=== PATIENT | female | born 1950 | race American Indian/Alaskan Native ===

== ENCOUNTER 2018-03-04 17:02 | Emergency (ER) | payer MEDICARE, MEDICAID ==
[~2018-03-04] VITALS: Ht 152.4 cm; Wt 84.3 kg
[2018-03-04 17:25] VITALS: BP 192/89
== END 2018-03-04 21:09 | disposition left against medical advice (07) ==
LOC: ER 17:03
DX: M25.571 Pain in right ankle and joints of right foot (principal); Z53.21 Procedure and treatment not carried out due to patient leaving prior to being seen by health care provider
CPT/HCPCS: 73610

== ENCOUNTER 2018-03-30 14:48 | Emergency (ER) | payer MEDICARE, MEDICAID ==
[~2018-03-30] VITALS: Ht 152.4 cm; Wt 81.8 kg
[2018-03-30] MEDS ORDERED: SULF1TAB49 PO (16:26)
[2018-03-30] MEDS ORDERED: CEPH-572 PO (16:26)
[2018-03-30 16:46] VITALS: BP 183/67
== END 2018-03-30 16:48 | disposition home or self-care (01) ==
LOC: ER 14:49
DX: L02.612 Cutaneous abscess of left foot (principal); E11.40 Type 2 diabetes mellitus with diabetic neuropathy, unspecified; Z98.890 Other specified postprocedural states; Z89.421 Acquired absence of other right toe(s); Z88.0 Allergy status to penicillin
CPT/HCPCS: 73620; 99283

== ENCOUNTER 2018-04-12 09:06 | Day surgery (SDC) | payer MEDICARE, MEDICAID ==
[2018-04-12] MEDS ORDERED: FURO-150 PO (11:41)
[2018-04-12] MEDS ORDERED: HYDR-3965 PO (11:41)
[2018-04-12] MEDS ORDERED: CYCL-394 (11:41)
[2018-04-12] MEDS ORDERED: ASPI81TA52 PO (11:41)
--- NOTE | 2018-04-12 11:42 | NUR ---
Patient ambulated independently from [facility] and was admitted to outpatient wound care for physician visit. Dressings removed, wound cleansed. New Patient assessment completed with review of patient's medical history and current medications. Blood Glucose= 133 @ 0935 1000-Dr. Malcolm at bedside accompanied by RN. Wound assessed, time-out performed by MD/RN. Wound debrided as detailed in the physician progress/procedure note. Plan of care discussed with patient. Dressings placed per MD orders. Patient instructed on the signs and symptoms of infection and to call the Wound Center if any occur or to go to the ED if we are closed: Increased pain in the wound Increase in drainage from the wound Redness in the skin surrounding the wound Bleeding from the wound Temperature of 101F or greater Patient instructed that the weight of their body puts a large amount of pressure on their wounds. This pressure keeps the new tissue from growing and inhibits new blood vessels from forming. Explained that, if they continue to bear weight on a body part that has a wound, the time it takes to heal the wound increases, the wound may get worse, or the wound may not heal at all. Patient instructed that elevated blood sugars delay healing of the wound and can cause further complications including but not limited to amputation of toes or feet. Patient verbalized understanding of all discharge instructions and plan of care. Patient ambulated independently out to [facility] in stable condition with no signs or symptoms of distress at time of discharge.
== END 2018-04-12 10:25 | disposition home or self-care (01) ==
LOC: WOUND CARE 09:06
PROVIDERS: ATTEND Surgery
DX: E11.621 Type 2 diabetes mellitus with foot ulcer (principal); L97.521 Non-pressure chronic ulcer of other part of left foot limited to breakdown of skin; E11.40 Type 2 diabetes mellitus with diabetic neuropathy, unspecified; Z98.890 Other specified postprocedural states; Z89.421 Acquired absence of other right toe(s)
CPT/HCPCS: 36416; 82948; 97597; A6021; A6206

== ENCOUNTER 2018-05-05 09:05 | Day surgery (SDC) | payer MEDICARE, MEDICAID ==
[~2018-05-05 09:05] MED LIST: ASPI81TA52 PO; CYCL-394; FURO-150 PO; HYDR-3965 PO
--- NOTE | 2018-05-05 15:13 | NUR ---
Patient ambulated independently from [facility] and was admitted to outpatient wound care for physician visit with Mario Malcolm MD. Dressing removed, wound cleansed and Emla cream applied per order. Patient assessed for changes in conditions, medications and medical history. Dr. Malcolm at bedside accompanied by RN. Wound assessed, time out performed by MD/RN. Wound debrided as detailed in the physician progress/procedure note. Plan of care discussed with patient. Dressings placed per MD orders. Patient instructed on the signs and symptoms of infection and to call the Wound Center if any occur or to go to the ED if we are closed: Increased pain in wound Increase in drainage from the wound Redness in the skin surrounding the wound Bleeding from the wound Temperature of 101 or greater Patient instructed that elevated blood sugars delay healing of the wound and can cause further complications including but not limited to amputation of toes or feet. Patient instructed that the weight of their body puts a large amount of pressure on their wounds. This pressure keeps the new tissue from growing and inhibits new blood vessels from forming. Explained that, if they continue to bear weight on a body part that has a wound, the time it takes to heal the wound increases, the wound may get worse or the wound may not heal at all. Patient verbalized understanding of all discharge instructions and plan of care and ambulated independently out to [facility] in stable condition with no sign or symptom of distress at time of discharge. Addendum: 05/05/18 at 1515 by Teresa Henriquez RN Amended: Links added.
== END 2018-05-05 10:47 | disposition home or self-care (01) ==
LOC: WOUND CARE 09:05
PROVIDERS: ATTEND Surgery
DX: E11.621 Type 2 diabetes mellitus with foot ulcer (principal); L97.521 Non-pressure chronic ulcer of other part of left foot limited to breakdown of skin; E11.40 Type 2 diabetes mellitus with diabetic neuropathy, unspecified; E11.65 Type 2 diabetes mellitus with hyperglycemia; Z98.890 Other specified postprocedural states; Z89.421 Acquired absence of other right toe(s)
CPT/HCPCS: 82948; 97597

== ENCOUNTER 2019-02-09 09:21 | Day surgery (SDC) | payer MEDICARE, MEDICAID ==
[~2019-02-09 09:21] MED LIST changes: +ALBU8.5H8 INH; +BLOO-579 PERCUTAN; +CHOL50004 PO; +CLON0.1T PO; +CYCL10TA10 PO; +FAMO20TA8 PO; +HYDR-3972 PO; +INSU100C4 SQ; +LANTUS SQ; +LEVO500T89 PO
[2019-02-09] MEDS ORDERED: LIDOcaine 2% 5ml jelly ONE (09:51)
== END 2019-02-09 11:05 | disposition home or self-care (01) ==
LOC: WOUND CARE 09:21
PROVIDERS: ATTEND Surgery
DX: E11.621 Type 2 diabetes mellitus with foot ulcer (principal); L97.512 Non-pressure chronic ulcer of other part of right foot with fat layer exposed; L97.521 Non-pressure chronic ulcer of other part of left foot limited to breakdown of skin; S91.101A Unspecified open wound of right great toe without damage to nail, initial encounter; E11.65 Type 2 diabetes mellitus with hyperglycemia; E11.36 Type 2 diabetes mellitus with diabetic cataract; E11.39 Type 2 diabetes mellitus with other diabetic ophthalmic complication; H42 Glaucoma in diseases classified elsewhere; E11.42 Type 2 diabetes mellitus with diabetic polyneuropathy; E11.22 Type 2 diabetes mellitus with diabetic chronic kidney disease; I12.9 Hypertensive chronic kidney disease with stage 1 through stage 4 chronic kidney disease, or unspecified chronic kidney disease; N18.9 Chronic kidney disease, unspecified; I25.2 Old myocardial infarction; I25.10 Atherosclerotic heart disease of native coronary artery without angina pectoris; M19.90 Unspecified osteoarthritis, unspecified site; J44.9 Chronic obstructive pulmonary disease, unspecified; Z90.722 Acquired absence of ovaries, bilateral; Z98.890 Other specified postprocedural states; Z79.2 Long term (current) use of antibiotics; Z79.82 Long term (current) use of aspirin; Z79.4 Long term (current) use of insulin; Z79.899 Other long term (current) drug therapy; Z95.1 Presence of aortocoronary bypass graft; Z89.421 Acquired absence of other right toe(s); Z87.891 Personal history of nicotine dependence; X58.XXXA Exposure to other specified factors, initial encounter; Y93.89 Activity, other specified; Y92.89 Other specified places as the place of occurrence of the external cause; Y99.8 Other external cause status
CPT/HCPCS: 36416; 82948; 87070; 87075; 87102; 97597; A4663; A6021; A6154

== ENCOUNTER 2019-02-16 09:30 | Day surgery (SDC) | payer MEDICARE, MEDICAID ==
[2019-02-16] MEDS ORDERED: LIDOcaine 2% 5ml jelly ONE (09:48)
== END 2019-02-16 11:55 | disposition home or self-care (01) ==
LOC: WOUND CARE 09:30
PROVIDERS: ATTEND Surgery
DX: E11.621 Type 2 diabetes mellitus with foot ulcer (principal); L97.512 Non-pressure chronic ulcer of other part of right foot with fat layer exposed; L97.521 Non-pressure chronic ulcer of other part of left foot limited to breakdown of skin; S91.101D Unspecified open wound of right great toe without damage to nail, subsequent encounter; E11.65 Type 2 diabetes mellitus with hyperglycemia; E11.36 Type 2 diabetes mellitus with diabetic cataract; E11.39 Type 2 diabetes mellitus with other diabetic ophthalmic complication; H42 Glaucoma in diseases classified elsewhere; E11.42 Type 2 diabetes mellitus with diabetic polyneuropathy; E11.22 Type 2 diabetes mellitus with diabetic chronic kidney disease; I12.9 Hypertensive chronic kidney disease with stage 1 through stage 4 chronic kidney disease, or unspecified chronic kidney disease; N18.9 Chronic kidney disease, unspecified; I25.2 Old myocardial infarction; I25.10 Atherosclerotic heart disease of native coronary artery without angina pectoris; M19.90 Unspecified osteoarthritis, unspecified site; J44.9 Chronic obstructive pulmonary disease, unspecified; Z90.722 Acquired absence of ovaries, bilateral; Z98.890 Other specified postprocedural states; Z79.2 Long term (current) use of antibiotics; Z79.82 Long term (current) use of aspirin; Z79.4 Long term (current) use of insulin; Z79.899 Other long term (current) drug therapy; Z95.1 Presence of aortocoronary bypass graft; Z89.421 Acquired absence of other right toe(s); Z87.891 Personal history of nicotine dependence; X58.XXXD Exposure to other specified factors, subsequent encounter
CPT/HCPCS: 36416; 82948; 93922; 93925; 97597; A6446; A4663; A6021; A6154

== ENCOUNTER 2019-02-23 09:10 | Day surgery (SDC) | payer MEDICARE, MEDICAID ==
[2019-02-23] MEDS ORDERED: LIDOcaine 2% 5ml jelly ONE (10:01)
== END 2019-02-23 11:08 | disposition home or self-care (01) ==
LOC: WOUND CARE 09:10
PROVIDERS: ATTEND Surgery
DX: E11.621 Type 2 diabetes mellitus with foot ulcer (principal); L97.521 Non-pressure chronic ulcer of other part of left foot limited to breakdown of skin; L97.512 Non-pressure chronic ulcer of other part of right foot with fat layer exposed; S91.101D Unspecified open wound of right great toe without damage to nail, subsequent encounter; E11.65 Type 2 diabetes mellitus with hyperglycemia; E11.36 Type 2 diabetes mellitus with diabetic cataract; E11.39 Type 2 diabetes mellitus with other diabetic ophthalmic complication; H42 Glaucoma in diseases classified elsewhere; E11.22 Type 2 diabetes mellitus with diabetic chronic kidney disease; I12.9 Hypertensive chronic kidney disease with stage 1 through stage 4 chronic kidney disease, or unspecified chronic kidney disease; N18.9 Chronic kidney disease, unspecified; I25.2 Old myocardial infarction; I25.10 Atherosclerotic heart disease of native coronary artery without angina pectoris; M19.90 Unspecified osteoarthritis, unspecified site; J44.9 Chronic obstructive pulmonary disease, unspecified; Z90.722 Acquired absence of ovaries, bilateral; Z98.890 Other specified postprocedural states; Z79.2 Long term (current) use of antibiotics; Z79.82 Long term (current) use of aspirin; Z79.4 Long term (current) use of insulin; Z79.899 Other long term (current) drug therapy; Z95.1 Presence of aortocoronary bypass graft; Z89.421 Acquired absence of other right toe(s); Z87.891 Personal history of nicotine dependence; X58.XXXD Exposure to other specified factors, subsequent encounter
CPT/HCPCS: 36416; 82948; 97597; A4663; A6021; A6154

== ENCOUNTER 2019-03-01 09:44 | Day surgery (SDC) | payer MEDICARE, MEDICAID ==
[2019-03-01] MEDS ORDERED: LIDOcaine 2% 5ml jelly ONE (10:08)
== END 2019-03-01 10:51 | disposition home or self-care (01) ==
LOC: WOUND CARE 09:44
PROVIDERS: ATTEND Nurse Practitioner Family
DX: E11.621 Type 2 diabetes mellitus with foot ulcer (principal); L97.512 Non-pressure chronic ulcer of other part of right foot with fat layer exposed; S91.101D Unspecified open wound of right great toe without damage to nail, subsequent encounter; E11.65 Type 2 diabetes mellitus with hyperglycemia; E11.36 Type 2 diabetes mellitus with diabetic cataract; E11.39 Type 2 diabetes mellitus with other diabetic ophthalmic complication; H42 Glaucoma in diseases classified elsewhere; E11.22 Type 2 diabetes mellitus with diabetic chronic kidney disease; I12.9 Hypertensive chronic kidney disease with stage 1 through stage 4 chronic kidney disease, or unspecified chronic kidney disease; N18.9 Chronic kidney disease, unspecified; I25.2 Old myocardial infarction; I25.10 Atherosclerotic heart disease of native coronary artery without angina pectoris; M19.90 Unspecified osteoarthritis, unspecified site; J44.9 Chronic obstructive pulmonary disease, unspecified; Z90.722 Acquired absence of ovaries, bilateral; Z98.890 Other specified postprocedural states; Z79.2 Long term (current) use of antibiotics; Z79.82 Long term (current) use of aspirin; Z79.4 Long term (current) use of insulin; Z79.899 Other long term (current) drug therapy; Z95.1 Presence of aortocoronary bypass graft; Z89.421 Acquired absence of other right toe(s); Z87.891 Personal history of nicotine dependence; X58.XXXD Exposure to other specified factors, subsequent encounter
CPT/HCPCS: 36416; 82948; 97597; A4663; A6021

== ENCOUNTER 2019-03-08 09:16 | Day surgery (SDC) | payer MEDICARE, MEDICAID ==
[2019-03-08] MEDS ORDERED: LIDOcaine 2% 5ml jelly ONE (09:40)
== END 2019-03-08 10:47 | disposition home or self-care (01) ==
LOC: WOUND CARE 09:16
PROVIDERS: ATTEND Nurse Practitioner Family
DX: E11.621 Type 2 diabetes mellitus with foot ulcer (principal); L97.512 Non-pressure chronic ulcer of other part of right foot with fat layer exposed; S91.101D Unspecified open wound of right great toe without damage to nail, subsequent encounter; E11.65 Type 2 diabetes mellitus with hyperglycemia; E11.36 Type 2 diabetes mellitus with diabetic cataract; E11.39 Type 2 diabetes mellitus with other diabetic ophthalmic complication; H42 Glaucoma in diseases classified elsewhere; E11.22 Type 2 diabetes mellitus with diabetic chronic kidney disease; I12.9 Hypertensive chronic kidney disease with stage 1 through stage 4 chronic kidney disease, or unspecified chronic kidney disease; N18.9 Chronic kidney disease, unspecified; E11.42 Type 2 diabetes mellitus with diabetic polyneuropathy; I25.2 Old myocardial infarction; I25.10 Atherosclerotic heart disease of native coronary artery without angina pectoris; M19.90 Unspecified osteoarthritis, unspecified site; J44.9 Chronic obstructive pulmonary disease, unspecified; Z90.722 Acquired absence of ovaries, bilateral; Z98.890 Other specified postprocedural states; Z79.2 Long term (current) use of antibiotics; Z79.82 Long term (current) use of aspirin; Z79.4 Long term (current) use of insulin; Z79.899 Other long term (current) drug therapy; Z95.1 Presence of aortocoronary bypass graft; Z89.421 Acquired absence of other right toe(s); Z87.891 Personal history of nicotine dependence; X58.XXXD Exposure to other specified factors, subsequent encounter
CPT/HCPCS: 36416; 82948; 97597; A4663; A6021; A6154

== ENCOUNTER 2019-03-23 09:30 | Day surgery (SDC) | payer MEDICARE, MEDICAID ==
[2019-03-23] MEDS ORDERED: LIDOcaine 2% 5ml jelly ONE (09:50)
== END 2019-03-23 10:45 | disposition home or self-care (01) ==
LOC: WOUND CARE 09:30
PROVIDERS: ATTEND Surgery
DX: E11.621 Type 2 diabetes mellitus with foot ulcer (principal); L97.512 Non-pressure chronic ulcer of other part of right foot with fat layer exposed; S91.101D Unspecified open wound of right great toe without damage to nail, subsequent encounter; E11.65 Type 2 diabetes mellitus with hyperglycemia; E11.36 Type 2 diabetes mellitus with diabetic cataract; E11.39 Type 2 diabetes mellitus with other diabetic ophthalmic complication; H42 Glaucoma in diseases classified elsewhere; E11.22 Type 2 diabetes mellitus with diabetic chronic kidney disease; I12.9 Hypertensive chronic kidney disease with stage 1 through stage 4 chronic kidney disease, or unspecified chronic kidney disease; N18.9 Chronic kidney disease, unspecified; E11.42 Type 2 diabetes mellitus with diabetic polyneuropathy; I25.2 Old myocardial infarction; I25.10 Atherosclerotic heart disease of native coronary artery without angina pectoris; M19.90 Unspecified osteoarthritis, unspecified site; J44.9 Chronic obstructive pulmonary disease, unspecified; Z90.722 Acquired absence of ovaries, bilateral; Z98.890 Other specified postprocedural states; Z79.2 Long term (current) use of antibiotics; Z79.82 Long term (current) use of aspirin; Z79.4 Long term (current) use of insulin; Z79.899 Other long term (current) drug therapy; Z95.1 Presence of aortocoronary bypass graft; Z89.421 Acquired absence of other right toe(s); Z87.891 Personal history of nicotine dependence; X58.XXXD Exposure to other specified factors, subsequent encounter
CPT/HCPCS: 36416; 82948; 97597; A4663; A6021; A6154

== ENCOUNTER 2019-03-30 09:15 | Day surgery (SDC) | payer MEDICARE, MEDICAID ==
[2019-03-30] MEDS ORDERED: LIDOcaine 2% 5ml jelly ONE (09:30)
== END 2019-03-30 10:03 | disposition home or self-care (01) ==
LOC: WOUND CARE 09:15
PROVIDERS: ATTEND Surgery
DX: E11.621 Type 2 diabetes mellitus with foot ulcer (principal); L97.512 Non-pressure chronic ulcer of other part of right foot with fat layer exposed; S91.101D Unspecified open wound of right great toe without damage to nail, subsequent encounter; E11.65 Type 2 diabetes mellitus with hyperglycemia; E11.36 Type 2 diabetes mellitus with diabetic cataract; E11.39 Type 2 diabetes mellitus with other diabetic ophthalmic complication; H42 Glaucoma in diseases classified elsewhere; E11.22 Type 2 diabetes mellitus with diabetic chronic kidney disease; I12.9 Hypertensive chronic kidney disease with stage 1 through stage 4 chronic kidney disease, or unspecified chronic kidney disease; N18.9 Chronic kidney disease, unspecified; E11.42 Type 2 diabetes mellitus with diabetic polyneuropathy; I25.2 Old myocardial infarction; I25.10 Atherosclerotic heart disease of native coronary artery without angina pectoris; M19.90 Unspecified osteoarthritis, unspecified site; J44.9 Chronic obstructive pulmonary disease, unspecified; Z90.722 Acquired absence of ovaries, bilateral; Z98.890 Other specified postprocedural states; Z79.2 Long term (current) use of antibiotics; Z79.82 Long term (current) use of aspirin; Z79.4 Long term (current) use of insulin; Z79.899 Other long term (current) drug therapy; Z95.1 Presence of aortocoronary bypass graft; Z89.421 Acquired absence of other right toe(s); Z87.891 Personal history of nicotine dependence; X58.XXXD Exposure to other specified factors, subsequent encounter
CPT/HCPCS: 36416; 82948; 97597; A6021; A6154

== ENCOUNTER 2019-04-06 09:16 | Day surgery (SDC) | payer MEDICARE, MEDICAID ==
[2019-04-06] MEDS ORDERED: LIDOcaine 2% 5ml jelly ONE (09:32)
== END 2019-04-06 11:20 | disposition home or self-care (01) ==
LOC: WOUND CARE 09:16
PROVIDERS: ATTEND Surgery
DX: E11.621 Type 2 diabetes mellitus with foot ulcer (principal); L97.512 Non-pressure chronic ulcer of other part of right foot with fat layer exposed; E11.65 Type 2 diabetes mellitus with hyperglycemia; E11.36 Type 2 diabetes mellitus with diabetic cataract; E11.39 Type 2 diabetes mellitus with other diabetic ophthalmic complication; H42 Glaucoma in diseases classified elsewhere; E11.22 Type 2 diabetes mellitus with diabetic chronic kidney disease; I12.9 Hypertensive chronic kidney disease with stage 1 through stage 4 chronic kidney disease, or unspecified chronic kidney disease; N18.9 Chronic kidney disease, unspecified; E11.42 Type 2 diabetes mellitus with diabetic polyneuropathy; I25.2 Old myocardial infarction; I25.10 Atherosclerotic heart disease of native coronary artery without angina pectoris; M19.90 Unspecified osteoarthritis, unspecified site; J44.9 Chronic obstructive pulmonary disease, unspecified; Z90.722 Acquired absence of ovaries, bilateral; Z98.890 Other specified postprocedural states; Z79.2 Long term (current) use of antibiotics; Z79.82 Long term (current) use of aspirin; Z79.4 Long term (current) use of insulin; Z79.899 Other long term (current) drug therapy; Z95.1 Presence of aortocoronary bypass graft; Z89.421 Acquired absence of other right toe(s); Z87.891 Personal history of nicotine dependence
CPT/HCPCS: 36416; 82948; 97597; A4663; A6021; A6154

== ENCOUNTER 2019-04-13 09:36 | Outpatient (CLI) | payer MEDICARE, MEDICAID ==
[2019-04-13] MEDS ORDERED: LIDOcaine 2% 5ml jelly ONE (09:46)
== END 2019-04-13 11:59 | disposition home or self-care (01) ==
LOC: WOUND CARE 09:36
PROVIDERS: ATTEND Surgery
DX: E11.621 Type 2 diabetes mellitus with foot ulcer (principal); L97.512 Non-pressure chronic ulcer of other part of right foot with fat layer exposed; E11.65 Type 2 diabetes mellitus with hyperglycemia; E11.36 Type 2 diabetes mellitus with diabetic cataract; E11.39 Type 2 diabetes mellitus with other diabetic ophthalmic complication; H42 Glaucoma in diseases classified elsewhere; E11.22 Type 2 diabetes mellitus with diabetic chronic kidney disease; I12.9 Hypertensive chronic kidney disease with stage 1 through stage 4 chronic kidney disease, or unspecified chronic kidney disease; N18.9 Chronic kidney disease, unspecified; E11.42 Type 2 diabetes mellitus with diabetic polyneuropathy; I25.2 Old myocardial infarction; I25.10 Atherosclerotic heart disease of native coronary artery without angina pectoris; M19.90 Unspecified osteoarthritis, unspecified site; J44.9 Chronic obstructive pulmonary disease, unspecified; Z90.722 Acquired absence of ovaries, bilateral; Z98.890 Other specified postprocedural states; Z79.2 Long term (current) use of antibiotics; Z79.82 Long term (current) use of aspirin; Z79.4 Long term (current) use of insulin; Z79.899 Other long term (current) drug therapy; Z95.1 Presence of aortocoronary bypass graft; Z89.421 Acquired absence of other right toe(s); Z87.891 Personal history of nicotine dependence
CPT/HCPCS: 36416; 82948; G0463

== ENCOUNTER 2020-03-14 11:32 | Emergency (ER) | payer BC, MEDICAID ==
[~2020-03-14] VITALS: Ht 180.3 cm; Wt 82.8 kg
[~2020-03-14 11:32] MED LIST changes: +AMLO5TAB16 PO; -CHOL50004 PO; -CLON0.1T PO; +CYCL-145 PO; -CYCL-394; -CYCL10TA10 PO; +DEXA2TAB PO; -FAMO20TA8 PO; -FURO-150 PO; -HYDR-3965 PO; -INSU100C4 SQ; +LISI-604 PO; +NOVLG SQ
--- NOTE | 2020-03-14 12:56 | NUR ---
Dayan kasper in [facility] - 03/14/20 at [email or web address] Freitas at bedside
[2020-03-14 13:09] LABS: BASOPHILS % (AUTO) 0.2 % (0-1); EOSINOPHILS % (AUTO) 0 % (0-6); HEMOGLOBIN 11.1 g/dl (12.0-16.0); LYMPHOCYTES # (AUTO) 0.3 X10'3 (1.1-4.8); LYMPHOCYTES % (AUTO) 2.3 % (21-51); MEAN CORPUSCULAR HGB CONC 32.6 g/dL (33.0-36.5); MEAN CORPUSCULAR VOLUME 88.8 FL (78-98); MEAN PLATELET VOLUME 8.4 FL (7.4-10.4); MONOCYTES # (AUTO) 0.3 X10'3 (0-0.9); MONOCYTES % (AUTO) 2.2 % (2-12); NEUTROPHILS # (AUTO) 12.1 X10'3 (1.8-7.7); NEUTROPHILS % (AUTO) 95.3 % (42-75); PLATELET COUNT 351 X10'3 (140-440); RED BLOOD COUNT 3.83 X10'6 (4.20-5.60); RED CELL DISTRIBUTION WIDTH 13.9 % (11.5-14.5); WHITE BLOOD COUNT 12.7 X10'3 (4.5-11.0)
[2020-03-14] MEDS ORDERED: benzonatate 100mg capsule PO ONE (13:20)
[2020-03-14 13:30] LABS: ALANINE AMINOTRANSFERASE 21 U/L (12-78); ALBUMIN 1.8 G/DL (3.4-5.0); ALBUMIN/GLOBULIN RATIO 0.4 (1.1-1.5); ALKALINE PHOSPHATASE 152 IU/L (46-116); ANION GAP 13 (8-16); ASPARTATE AMINO TRANSFERASE 17 U/L (10-37); BILIRUBIN,TOTAL 0.3 MG/DL (0.1-1.0); BLOOD UREA NITROGEN 66 MG/DL (7-18); BUN/CREATININE RATIO 20.5 (6.6-38.0); CHLORIDE 99 MMOL/L (99-107); CREATININE 3.22 MG/DL (0.40-0.90); POTASSIUM 4.7 MMOL/L (3.5-5.1); SODIUM 131 MMOL/L (135-145); TOTAL PROTEIN 6.9 G/DL (6.4-8.2); eGFR 14 ML/MIN
[2020-03-14 13:35] LABS: GLUCOSE 531 MG/DL (70-104)
[2020-03-14] MEDS ORDERED: BENZ-16 PO (14:09)
[2020-03-14] MEDS ORDERED: insulin glargine (Lantus) pen - multi-dose SQ ONE (14:15)
[2020-03-14] MEDS ORDERED: insulin regular, human 10 units/0.1 ml syringe SQ ONE (14:15)
[2020-03-14 15:34] VITALS: BP 136/68
[2020-03-23] MEDS ORDERED: FURO20TA4 PO (02:49)
== END 2020-03-14 16:55 | disposition home or self-care (01) ==
LOC: ER 11:32
DX: U07.1 COVID-19 (principal); J12.82 Pneumonia due to coronavirus disease 2019; E13.65 Other specified diabetes mellitus with hyperglycemia; R07.9 Chest pain, unspecified; R05 Cough; R06.02 Shortness of breath; I12.9 Hypertensive chronic kidney disease with stage 1 through stage 4 chronic kidney disease, or unspecified chronic kidney disease; N18.9 Chronic kidney disease, unspecified; Z86.73 Personal history of transient ischemic attack (TIA), and cerebral infarction without residual deficits; Z87.440 Personal history of urinary (tract) infections; Z98.890 Other specified postprocedural states; Z88.0 Allergy status to penicillin; Z79.4 Long term (current) use of insulin; Z79.2 Long term (current) use of antibiotics; Z79.899 Other long term (current) drug therapy
CPT/HCPCS: 36415; 71045; 80053; 83880; 84484; 85025; 96372; 99285; J1815